=== PATIENT | male | born 1990 | race Caucasian/White ===

== ENCOUNTER 2018-09-29 10:52 | Emergency (ER) | payer BC ==
[~2018-09-29] VITALS: Ht 175.3 cm; Wt 114.3 kg
[~2018-09-29 10:52] MED LIST: ACETAMINOPHEN325 M1 PO; AVELOX 400 MG400 M1 PO; CIPRO500 MG PO; FLOMAX0.4 MG PO; HYDROCODON-ACE1 EAC7 PO; HYDROCODONE-AP1 EAC6 PO; MUCINEX600 MG PO; NOHOMEMEDICATIONS; PERCOCET PO; TYLENOL325 MG PO; VENTOLIN HFA INH8 GM INH
[2018-09-29] MEDS ORDERED: PREDNISONE 20 M20 M1 PO (11:12)
[2018-09-29] MEDS ORDERED: PROAIR HFA8.5 GM INH (11:12)
[2018-09-29] MEDS ORDERED: TESSALON PERLE100 MG PO (11:12)
[2018-09-29] MEDS ORDERED: AUGMENTIN 875-1 EACH PO (11:12)
[2018-09-29 11:41] VITALS: BP 128/88
== END 2018-09-29 11:43 | disposition home or self-care (01) ==
LOC: M.ERS 10:52
DX: J20.9 Acute bronchitis, unspecified (principal); J01.90 Acute sinusitis, unspecified; Z91.030 Bee allergy status; Z88.1 Allergy status to other antibiotic agents; Z90.49 Acquired absence of other specified parts of digestive tract

== ENCOUNTER 2020-11-13 00:46 | Emergency (ER) | payer BC ==
[~2020-11-13] VITALS: Ht 175.3 cm; Wt 121.1 kg
--- NOTE | ~2020-11-13 | EMS ---
[facility] [address] [place] [address] EMS Patient Care Report Name: WILLIAM PATEL ESQ [id number] Admission: 11/13/20 Attend Phys: Discharge: 11/13/20 Date of : [birth year] Report #: [id number] THIS REPORT FOR: //name// Report Transmitted: 11/15/2020 14:45 EMS Care Summary BRYNN Eloy ABY Incident [id number] @ 11/13/2020 00:15 Incident [address] [place] [address] Patient William Patel Male, 30 Years 1990 Patient Address [address] [place] [id number] Patient History Cardiomyopathy, Patient Allergies , Chief Complaint Head Pain Disposition Transported No Lights/[place] Dispatch Reason Falls Transported To [facility] Narrative [facility] dispatched for a fall with a head injury. [facility] arrived on scene to [facility]. As 314 approached south entrance of [facility], patient (William Patel-30 year old male) is seen sitting on the floor leaning to the right side holding the back of his head with his left hand. William is accompanied by his father. Raman father states that he slipped and hit the back of his head on the floor and the corner edge of the wall with a positive [facility] [address] [place] [address] EMS Patient Care Report Name: WILLIAM PATEL ESQ Room: [facility]#: [id number] Admission: 11/13/20 Attend Phys: Discharge: 11/13/20 Date of : [birth year] Report #: [id number] loss of consciousness, possibly for 15-30 seconds. The back of Raman head is examined, no bleeding not laceration is noted and no other injury is apparent. William denies taking any blood thinners. William is noted to be wearing cowboy boots with smooth soles and no tread. William is conscious, alert and oriented to person, place, time and event. Pupils PERRL, airway is open and patent, with respirations of adequate rate and depth. Skin in pink, warm and dry with cap refill 1-2 seconds. William states that his head hurts with some slight neck tenderness in the lower left base of his neck, is very dizzy and nauseated. Emesis bag provided. William states that he wants to be transported to [facility] in [place]. With the vero strap, William is lifted to a standing position and assisted to the cot, sat in semi fowlers position, covered with a blanket and secured with all safety straps. William states that he does not feel as dizzy or nauseated while laying back on the cot. Cot elevated, wheeled to ambulance, loaded and secured. In ambulance 4 lead and vital signs obtained as documented. William declined having an IV started out of fear of needles, requested if he needs one he can have it done at the ER. Finger stick blood glucose obtained. William is transported to destination without incident or change in his condition. Transport signature obtained. Cot unloaded and wheeled inside to nurses station, directed to ER 9. Cot lowered and brought next to ER bed. William is transferred by slide method without incident by [facility] and ER staff. Transfer of care report given to CLEMENT Sanches. Transfer of care signature obtained, care transferred. [facility] 314 clear and available Initial Vitals @00:24Pain: 05/08, @00:40Pain: 03/08, @00:32SpO2: 98, @00:34SpO2: 97, @00:35SpO2: 96, @00:40SpO2: 96, @00:41SpO2: 97, @00:30 @00:34P: 75,R: 17,BP: 156/112,Revised Trauma: 8, @00:41P: 82,R: 17,BP: 166/107,Revised Trauma: 8, @00:34GCS: 15, @00:41GCS: 15, @00:19 @00:33Glucose: 193, Assessments @00:19MENTAL:SKIN:HEENT:LUNG SOUNDS:ABDOMEN:PELVIS//GI:EXTREMITIES:PULSE:NEURO: [place] [address] EMS Patient Care Report Name: WILLIAM PATEL ESQ [facility] [id number] Admission: 11/13/20 Attend Phys: Discharge: 11/13/20 Date of : [birth year] Report #: [id number] Procedures @00:303-Lead ECGResponse: UnchangedSucceeded Timeline 00:14,Call Received 00:14,Dispatch Notified 00:14,Psap Call 00:15,Dispatched 00:15,En Route 00:18,On Scene 00:19,At Patient 00:19,BP: / M,PULSE: ,RR: R,SPO2: Ox,ETCO2: ,BG: ,PAIN: ,GCS: , 00:24,BP: / M,PULSE: ,RR: R,SPO2: Ox,ETCO2: ,BG: ,PAIN: 8,GCS: , 00:30,3-Lead ECG,Response: UnchangedSucceeded, 00:30,BP: / M,PULSE: ,RR: R,SPO2: Ox,ETCO2: ,BG: ,PAIN: ,GCS: , 00:32,BP: / M,PULSE: ,RR: R,SPO2: 98 Ox,ETCO2: ,BG: ,PAIN: ,GCS: , 00:33,BP: / M,PULSE: ,RR: R,SPO2: Ox,ETCO2: ,B,PAIN: ,GCS: , 00:34,BP: / M,PULSE: ,RR: R,SPO2: 97 Ox,ETCO2: ,BG: ,PAIN: ,GCS: , 00:34,BP: 156/112 M,PULSE: 75,RR: 17 R,SPO2: Ox,ETCO2: ,BG: ,PAIN: ,GCS: , 00:34,BP: / M,PULSE: ,RR: R,SPO2: Ox,ETCO2: ,BG: ,PAIN: ,GCS: 15, 00:34,Depart Scene 00:35,BP: / M,PULSE: ,RR: R,SPO2: 96 Ox,ETCO2: ,BG: ,PAIN: ,GCS: , 00:40,BP: / M,PULSE: ,RR: R,SPO2: Ox,ETCO2: ,BG: ,PAIN: 6,GCS: , 00:40,BP: / M,PULSE: ,RR: R,SPO2: 96 Ox,ETCO2: ,BG: ,PAIN: ,GCS: , 00:41,BP: / M,PULSE: ,RR: R,SPO2: 97 Ox,ETCO2: ,BG: ,PAIN: ,GCS: , 00:41,BP: 166/107 M,PULSE: 82,RR: 17 R,SPO2: Ox,ETCO2: ,BG: ,PAIN: ,GCS: , 00:41,BP: / M,PULSE: ,RR: R,SPO2: Ox,ETCO2: ,BG: ,PAIN: ,GCS: 15, 00:43,At Destination 01:01,Call Closed Disclaimer v1.1 Copyright 2020 [employer] This EMS Care Summary contains data elements from the applicable legal record (which may be displayed differently). It is designed to provide pertinent information for the following purposes: continuity of care, clinical quality, and state data reporting. The complete legal record is available to ED staff and administrators of the receiving hospital in [employer]'s Patient Tracker. All data is provided "as is."
[~2020-11-13 00:46] MED LIST changes: +AUGMENTIN 875-1 EACH PO; +PREDNISONE 20 M20 M1 PO; +PROAIR HFA8.5 GM INH; +TESSALON PERLE100 MG PO
[2020-11-13 02:52] VITALS: BP 146/103
--- NOTE | 2020-11-13 11:13 | EKG ---
[place] [address] ELECTROCARDIOGRAM REPORT Name: WILLIAM SALCIDO ESQ NAOMIRoom: 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[facility] : 1990 Requested By: Karla Le Order Number: [id number] MD: Gato Jaffe Measurements Intervals [place] Rate: 108 P: [place]: QRS: 37 QRSD: 81 T: 46 QT: 328 QTc: 440 Interpretive Statements Atrial fibrillation Abnormal inferior Q waves ST elev, probable normal early repol pattern Compared to ECG 05/23/2012 10:44:54 Sinus rhythm no longer present Right ventricular hypertrophy no longer present Electronically Signed On 11-13-2020 11:13:37 WASHER REPAIRMAN by Gato Jaffe [email or web address] <ELECTRONICALLY SIGNED> By: Gato Jaffe MD, [facility] 11/13/20 1113 0120 0120 Gato Jaffe MD, [facility] /EPI
== END 2020-11-13 02:52 | disposition home or self-care (01) ==
LOC: M.ERS 00:46
DX: S06.0X0A Concussion without loss of consciousness, initial encounter (principal); M54.6 Pain in thoracic spine; M54.2 Cervicalgia; Z90.49 Acquired absence of other specified parts of digestive tract; Z87.01 Personal history of pneumonia (recurrent); Z88.1 Allergy status to other antibiotic agents; Z91.030 Bee allergy status; W01.0XXA Fall on same level from slipping, tripping and stumbling without subsequent striking against object, initial encounter; Y93.89 Activity, other specified; Y92.89 Other specified places as the place of occurrence of the external cause; Y99.8 Other external cause status

== ENCOUNTER 2021-04-21 21:34 | Emergency (ER) | payer BC ==
[~2021-04-21] VITALS: Ht 175.3 cm; Wt 113.4 kg
[2021-04-21] MEDS ORDERED: METFORMIN HCL500 M3 PO (22:32)
[2021-04-21] MEDS ORDERED: JARDIANCE10 MG PO (22:33)
[2021-04-21 23:00] LABS: ABSOLUTE BASOPHILS 0.1 thou/uL (0.0-0.2); ABSOLUTE EOSINOPHILS 0.2 thou/uL (0.0-0.7); ABSOLUTE LYMPHOCYTES 3.3 thou/uL (0.8-5.3); ABSOLUTE MONOCYTES 0.5 thou/uL (0.0-1.2); ABSOLUTE NEUTROPHILS 4.7 thou/uL (1.6-8.1); BASOPHILS 1.3 %; EOSINOPHILS 2.4 %; HEMATOCRIT 45.9 % (42.0-52.0); LYMPHOCYTES 37.6 %; MCH 30.9 pg (26.0-34.0); MCHC 34.9 g/dL (28.0-37.0); MCV 88.4 fL (80.0-100.0); MONOCYTES 5.6 %; NUCLEATED RBCS 0 /100WBC; PLATELET COUNT* 197 thou/uL (150-400); POLYS 53.1 %; RBC 5.19 mil/uL (4.50-6.00); RDW-CV 13.2 % (10.5-14.5); WBC 8.8 thou/uL (4.0-11.0)
[2021-04-21 23:08] LABS: CALCIUM 9.5 mg/dL (8.5-10.1); CREATININE 0.8 mg/dL (0.6-1.3)
[2021-04-21 23:19] LABS: ALBUMIN 4.1 g/dL (3.4-5.0); MAGNESIUM 1.9 mg/dL (1.8-2.4); TOTAL BILIRUBIN 0.3 mg/dL (<0.1-1.0); TOTAL PROTEIN 7.4 g/dL (6.4-8.2)
[2021-04-22] MEDS ORDERED: TRAMADOL 50 MG50 MG PO (00:23)
[2021-04-22] MEDS ORDERED: FLEXERIL PO (00:23)
[2021-04-22] MEDS ORDERED: CARAFATE 1 GM TA1 GM PO (00:23)
[2021-04-22 00:40] VITALS: BP 147/68
--- NOTE | 2021-04-23 14:02 | EKG ---
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 : 1990 Requested By: Karla Le Order Number: [id number] MD: Colton Marin Measurements Intervals [place] Rate: 76 P: 50 DE: 165 QRS: 37 QRSD: 77 T: 45 QT: 369 QTc: 415 Interpretive Statements Sinus rhythm ST elev, probable normal early repol pattern Compared to ECG 11/13/2020 01:20:11 Atrial fibrillation no longer present Inferior Q waves are less prominent ST (T wave) deviation still present Electronically Signed On 04-23-2021 14:01:59 CDT by Colton Marin [email or web address] <ELECTRONICALLY SIGNED> By: Colton Marin MD, FAC 04/23/21 1401 2254 2254 Colton Marin MD, FAC /EPI
--- NOTE | 2021-04-24 15:21 | EKG ---
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 : 1990 Requested By: Karla Le Order Number: [id number] Reading MD: Colton Marin Measurements Intervals [place] Rate: 76 P: 70 GA: 191 QRS: 61 QRSD: 82 T: 64 QT: 376 QTc: 423 Interpretive Statements Sinus rhythm ST elev, probable normal early repol pattern Compared to ECG 11/13/2020 01:20:11 Atrial fibrillation no longer present Inferior Q waves no longer present Q waves no longer present ST (T wave) deviation still present Electronically Signed On 04-24-2021 15:21:49 CDT by Colton Marin [email or web address] <ELECTRONICALLY SIGNED> By: Colton Marin MD, [facility] 04/24/21 1521 22 22 Colton Marin MD, [facility] /EPI
== END 2021-04-22 00:41 | disposition home or self-care (01) ==
LOC: M.ERS 21:34
PROVIDERS: Emergency Medicine
DX: M54.12 Radiculopathy, cervical region (principal); R10.13 Epigastric pain; Z88.1 Allergy status to other antibiotic agents; Z91.030 Bee allergy status; Z90.49 Acquired absence of other specified parts of digestive tract; Z87.01 Personal history of pneumonia (recurrent)